=== PATIENT | male | born 1995 | race Caucasian/White ===

== ENCOUNTER 2020-12-18 17:22 | Emergency (ER) | payer OTHER ==
[~2020-12-18] VITALS: Ht 182.9 cm; Wt 105.7 kg
[2020-12-18 17:24] VITALS: BP 130/83
== END 2020-12-18 18:08 | disposition home or self-care (01) ==
LOC: M ED 17:22
DX: S83.512A Sprain of anterior cruciate ligament of left knee, initial encounter (principal); X50.0XXA Overexertion from strenuous movement or load, initial encounter; Y92.828 Other wilderness area as the place of occurrence of the external cause; Y93.23 Activity, snow (alpine) (downhill) skiing, snowboarding, sledding, tobogganing and snow tubing; Y99.9 Unspecified external cause status

== ENCOUNTER 2022-01-19 14:04 | Emergency (ER) | payer OTHER ==
[~2022-01-19] VITALS: Ht 182.9 cm; Wt 109.3 kg
[2022-01-19 16:01] VITALS: BP 131/78
== END 2022-01-19 16:13 | disposition home or self-care (01) ==
LOC: M ED 14:04
DX: S16.1XXA Strain of muscle, fascia and tendon at neck level, initial encounter (principal); R51.9 Headache, unspecified; V49.40XA Driver injured in collision with unspecified motor vehicles in traffic accident, initial encounter; Y92.9 Unspecified place or not applicable; Y93.9 Activity, unspecified; Y99.9 Unspecified external cause status